=== PATIENT | female | born 1975 | race Caucasian/White ===

== ENCOUNTER 2019-04-04 16:41 | Emergency (ER) | payer BC ==
[~2019-04-04] VITALS: Ht 162.6 cm; Wt 48.0 kg
[~2019-04-04 16:41] MED LIST: ADVAIR DISK1 IN; VENTOLIN HFA IN
[2019-04-04 17:59] VITALS: BP 117/68
== END 2019-04-04 17:59 | disposition home or self-care (01) | DRG 605 ==
LOC: ED 16:41
PROC: 0HQGXZZ Repair Left Hand Skin, External Approach (ICD-10-PCS; principal; 2019-04-04)
DX: S61.412A Laceration without foreign body of left hand, initial encounter (principal); W26.8XXA Contact with other sharp object(s), not elsewhere classified, initial encounter; Y93.89 Activity, other specified; Y92.007 Garden or yard of unspecified non-institutional (private) residence as the place of occurrence of the external cause